=== PATIENT | female | born 1995 | race Caucasian/White ===

== ENCOUNTER 2018-11-28 18:58 | Emergency (ER) | payer MEDICAID ==
[~2018-11-28] VITALS: Ht 167.6 cm; Wt 70.8 kg
[2018-11-28 18:59] VITALS: Ht 167.6 cm; Wt 70.8 kg
[2018-11-28 20:59] VITALS: BP 104/69
== END 2018-11-28 20:59 | disposition home or self-care (01) ==
LOC: ED 18:58
DX: S00.83XA Contusion of other part of head, initial encounter (principal); M54.2 Cervicalgia; V49.9XXA Car occupant (driver) (passenger) injured in unspecified traffic accident, initial encounter; Y93.89 Activity, other specified; Y92.488 Other paved roadways as the place of occurrence of the external cause; Y99.8 Other external cause status
CPT/HCPCS: J1885